=== PATIENT | female | born 1990 | race Caucasian/White ===

== ENCOUNTER 2016-10-31 19:27 | Observation (INO) | payer MEDICAID ==
[~2016-10-31] VITALS: Ht 157.5 cm; Wt 62.0 kg
[2016-10-31 19:58] VITALS: BP 96/52; PULSE 88; RESP 22; TEMP 96.4; O2SAT 96
[2016-10-31] MEDS ORDERED: SODIUM CHLOR 0.9% 1000 ML INJ 1,000 ML IV SCH (20:06)
[2016-10-31] MEDS ORDERED: ONDANSETRON HCL 4 MG/2 ML VIAL IVP ONE (20:15)
[2016-10-31] MEDS ORDERED: SODIUM CHLORIDE 0.9% FLUSH 10 ML FLUSH IV FLUSH PRN (20:15)
--- NOTE | 2016-10-31 20:26 | PD ---
HPI Chief Complaint: Abdominal Pain Time Seen by Provider: 20:15 Travel History International Travel<30 days: No Contact w/Intl Traveler<30days: No Traveled to known affect area: No History of Present Illness HPI Patient is a 26-year-old female presenting to emergency department via EMS for evaluation of abdominal pain. Patient's pain started abruptly approximately one hour prior to arrival. Per her sister's report patient went to the bathroom because she became nauseated, she vomited and became diaphoretic. She had a second episode of vomiting in the bathroom. Her sister stated that she was going to bring her to the emergency department but patient was able to get get up so she called 911. Her last normal menstrual cycle was over a month ago , she states that she spotted last week that was not normal for her. She has no other significant past medical history or complaints. PFSH Past Medical History Medical History: Denies Significant Hx ?: Unknown Social History Alcohol Use: Yes Tobacco Use: Yes Substance Use: No Allergies-Medications (Allergen,Severity, Reaction): Coded Allergies: No Known Allergies (Unverified , 10/31/16) Reported Meds & Prescriptions Reported Meds & Active Scripts Active Ibuprofen 600 Mg Tab 600 Mg PO Q6H PRN Oxycodone-Acetaminophen 10-325 mg Tab 1 Tab PO UNSCH X1 PRN Review of Systems Except as stated in HPI: all other systems reviewed are Neg General / Constitutional: No: Fever, Chills Cardiovascular: Positive: Diaphoresis Gastrointestinal: Positive: Nausea, Vomiting, Abdominal Pain Genitourinary: No: Dysuria Physical Exam Narrative GENERAL: Well-developed, well-nourished, alert female. SKIN: Focused skin assessment warm/dry. HEAD: Atraumatic. Normocephalic. EYES: Pupils equal and round. No scleral icterus. No injection or drainage. ENT: No nasal bleeding or discharge. Mucous membranes pink and moist. NECK: Trachea midline. No JVD. CARDIOVASCULAR: Regular rate and rhythm. No murmur appreciated. RESPIRATORY: No accessory muscle use. Clear to auscultation. Breath sounds equal bilaterally. GASTROINTESTINAL: Abdomen soft, tender to palpation in bilateral lower quadrants., nondistended. Hepatic and splenic margins not palpable. Active bowel sounds, positive guarding. MUSCULOSKELETAL: No obvious deformities. No clubbing. No cyanosis. No edema. NEUROLOGICAL: Awake and alert. No obvious cranial nerve deficits. Motor grossly within normal limits. Normal speech. PSYCHIATRIC: Appropriate mood and affect; insight and judgment normal. Data Data Last Documented VS Vital Signs Date Time Temp Pulse Resp B/P Pulse Ox O2 Delivery O2 Flow Rate FiO2 10/31/16 23:50 78 20 104/58 100 Room Air 10/31/16 19:58 96.4 Orders Basic Metabolic Panel (Bmp) (10/31/16 20:06) Complete Blood Count With Diff (10/31/16 20:06) Lipase (10/31/16 20:06) Urinalysis - C+S If Indicated (10/31/16 20:06) Iv Access Insert/Monitor (10/31/16 20:06) Ecg Monitoring (10/31/16 20:06) Oximetry (10/31/16 20:06) NPO (10/31/16 20:06) Ondansetron Inj (Zofran Inj) (10/31/16 20:15) Sodium Chlor 0.9% 1000 Ml Inj (Ns 1000 M (10/31/16 20:06) Sodium Chloride 0.9% Flush (Ns Flush) (10/31/16 20:15) Ed Urine Pregnancytest Poc (10/31/16 20:06) Sodium Chlor 0.9% 1000 Ml Inj (Ns 1000 M (10/31/16 21:15) Protein Corrected Calcium(Pcc) (10/31/16 20:37) Lactic Acid (10/31/16 21:23) Beta Hcg (Quant/Titer) (10/31/16 20:37) Type And Screen (10/31/16 21:40) Us Pelvis (Ques Pr/Ect)W Trans (10/31/16 ) Complete Blood Count With Diff (10/31/16 23:48) Bupivacaine-Epi Pf 0.25% Inj (Marcaine-E (11/01/16 00:27) Bupivacaine Pf 0.25% Inj (Marcaine Pf 0. (11/01/16 00:28) Labs Laboratory Tests Test 10/31/16 10/31/16 10/31/16 10/31/16 20:37 21:10 21:14 21:57 White Blood Count 15.8 TH/MM3 Red Blood Count 2.76 MIL/MM3 Hemoglobin 8.6 GM/DL Hematocrit 25.1 % Mean Corpuscular Volume 90.8 FL Mean Corpuscular Hemoglobin 31.1 PG Mean Corpuscular Hemoglobin 34.2 % Concent Red Cell Distribution Width 12.0 % Platelet Count 293 TH/MM3 Mean Platelet Volume 7.3 FL Neutrophils (%) (Auto) 86.8 % Lymphocytes (%) (Auto) 8.7 % Monocytes (%) (Auto) 4.2 % Eosinophils (%) (Auto) 0.1 % Basophils (%) (Auto) 0.2 % Neutrophils # (Auto) 13.7 TH/MM3 Lymphocytes # (Auto) 1.4 TH/MM3 Monocytes # (Auto) 0.7 TH/MM3 Eosinophils # (Auto) 0.0 TH/MM3 Basophils # (Auto) 0.0 TH/MM3 CBC Comment DIFF FINAL Differential Comment Sodium Level 138 MEQ/L Potassium Level 3.6 MEQ/L Chloride Level 107 MEQ/L Carbon Dioxide Level 17.8 MEQ/L Anion Gap 13 MEQ/L Blood Urea Nitrogen 13 MG/DL Creatinine 0.68 MG/DL Estimat Glomerular Filtration 106 ML/MIN Rate Random Glucose 194 MG/DL Calcium Level 7.3 MG/DL Protein Corrected Calcium 8.3 MG/DL Total Protein 5.3 GM/DL Lipase 47 U/L Human Chorionic Gonadotropin, [address] MIU/ML Quant Urine Color YELLOW Urine Turbidity HAZY Urine pH 6.5 Urine Specific [place] 1.025 Urine Protein 30 mg/dL Urine Glucose (UA) 150 mg/dL Urine Ketones 150 mg/dL Urine Occult Blood NEG Urine Nitrite NEG Urine Bilirubin NEG Urine Urobilinogen 2.0 MG/DL Urine Leukocyte Esterase NEG Urine WBC 4 /hpf Urine Squamous Epithelial 2 /hpf Cells Urine Hyaline Casts 4 /lpf Urine Mucus MOD /lpf Microscopic Urinalysis Comment CULT NOT INDICATED Lactic Acid Level 3.0 mmol/L Blood Type A POSITIVE Antibody Screen NEGATIVE Blood Bank Comment Test 10/31/16 23:55 White Blood Count 13.4 TH/MM3 Red Blood Count 2.15 MIL/MM3 Hemoglobin 6.6 GM/DL Hematocrit 19.8 % Mean Corpuscular Volume 91.9 FL Mean Corpuscular Hemoglobin 30.6 PG Mean Corpuscular Hemoglobin 33.3 % Concent Red Cell Distribution Width 12.1 % Platelet Count 263 TH/MM3 Mean Platelet Volume 7.4 FL Neutrophils (%) (Auto) 92.2 % Lymphocytes (%) (Auto) 5.1 % Monocytes (%) (Auto) 2.5 % Eosinophils (%) (Auto) 0.0 % Basophils (%) (Auto) 0.2 % Neutrophils # (Auto) 12.4 TH/MM3 Lymphocytes # (Auto) 0.7 TH/MM3 Monocytes # (Auto) 0.3 TH/MM3 Eosinophils # (Auto) 0.0 TH/MM3 Basophils # (Auto) 0.0 TH/MM3 CBC Comment DIFF FINAL Differential Comment MDM Medical Decision Making Medical Screen Exam Complete: Yes Emergency Medical Condition: Yes Interpretation(s) Vital Signs Date Time Temp Pulse Resp B/P Pulse Ox O2 Delivery O2 Flow Rate FiO2 10/31/16 19:58 96.4 88 22 96/52 96 Differential Diagnosis enteritis versus UTI versus ectopic versus versus other Narrative Course Patient is a 26-year-old female presenting to the emergency department via EMS for evaluation of abdominal pain, nausea or vomiting. Abdominal pain started abruptly approximately 1 hour prior to arrival, patient had been having several episodes of vomiting at home, and then became unable to get up so her sister, 911. Patient is slightly hypotensive, she has received 2 L of IV fluids, A third liter is hanging. Labs and imaging ordered and pending. The, patient has not vomited since she has been in the emergency department. Care of patient transferred to my attending physician at the end of my shift, he will determine patient's disposition. Scripts Ibuprofen 600 Mg [id number] Mg PO Q6H PRN (Pain/Inflammation) #40 TAB Ref 0 Prov:Beck Ritchie MD 11/01/16 Oxycodone-Acetaminophen 10-325 mg Tab1 Tab PO UNSCH X1 PRN (PAIN SCALE 6 TO 10) #30 TAB Prov:Beck Ritchie MD 11/01/16 Priscilla Pantoja Oct 31, 2016 20:26
[2016-10-31 20:57] VITALS: PULSE 73; O2SAT 100
[2016-10-31 20:57] LABS: AUTOMATED NEUTROPHIL # 13.7 TH/MM3 (1.8-7.7); BASOPHIL % 0.2 % (0.0-2.0); EOSINOPHIL % 0.1 % (0.0-4.0); HEMATOCRIT 25.1 % (35.0-46.0); HEMO FLAGS DIFF FINAL; LYMPH % 8.7 % (9.0-44.0); LYMPHOCYTE # 1.4 TH/MM3 (1.0-4.8); MEAN CELL VOLUME 90.8 FL (80.0-100.0); MEAN CORPUSCULAR HEMOGLOBIN 31.1 PG (27.0-34.0); MEAN CORPUSCULAR HGB CONC 34.2 % (32.0-36.0); MONO % 4.2 % (0.0-8.0); NEUT % 86.8 % (16.0-70.0); PLATELET COUNT 293 TH/MM3 (150-450); RED BLOOD COUNT 2.76 MIL/MM3 (4.00-5.30); WHITE BLOOD COUNT 15.8 TH/MM3 (4.0-11.0)
[2016-10-31 21:11] LABS: BICARBONATE 17.8 MEQ/L (21.0-32.0)
[2016-10-31 21:14] LABS: POTASSIUM 3.6 MEQ/L (3.5-5.1)
[2016-10-31] MEDS ORDERED: SODIUM CHLOR 0.9% 1000 ML INJ 1,000 ML IV ONE (21:15)
[2016-10-31 21:17] VITALS: BP 127/60; PULSE 75; O2SAT 100
[2016-10-31 21:29] LABS: CALCIUM-PROTEIN CORRECTED 8.3 MG/DL (8.5-10.1)
[2016-10-31 21:43] LABS: BLOOD, URINE NEG (NEG); COMMENT (UR) CULT NOT INDICATED; CULTURE IF INDICATED CULT NOT INDICATED; GLUCOSE,URINE 150 mg/dL (NEG); HYALINE CAST, URINE 4 /lpf (RARE); KETONE, URINE 150 mg/dL (NEG); MUCUS URINE MOD /lpf (OCC); NITRITE,URINE NEG (NEG); PH, URINE 6.5 (5.0-8.5); SQUAMOUS EPITHELIAL CELL URINE 2 /hpf (0-5); URINE COLOR YELLOW (YELLW/STRAW)
--- NOTE | 2016-10-31 22:54 | HHI.HP ---
HPI Chief Complaint Sudden onset of abdominal pain Date Seen: Oct 31, 2016 Time Seen: 22:48 Travel History International Travel<30 Days: No Contact w/Intl Traveler<30Days: No Known Affected Area: No History of Present Illness HPI 26-year-old female at unknown gestational age comes into the ED complaining of sudden onset of severe abdominal pain associated with diaphoresis and lightheadedness. She was not aware of her and had a UCG in the ED this evening that was positive. Patient had a low blood pressure on presentation and had placement of an IV with fluids. She has not been on any control and believes that her last partial cycle was approximately 4-1 /2 weeks ago but is not certain. She is visiting here from [place] where she resides. Para: 0 : 1 History Past Medical History Medical History: Denies Significant Hx Past Surgical History Surgical History: No Previous Surgery Family History Family History: Negative Social History Alcohol Use: Yes Tobacco Use: Yes (half a pack a day) Substance Abuse: Yes (marijuana use) Allergies-Medications (Allergen,Severity, Reaction): Coded Allergies: No Known Allergies (Unverified , 10/31/16) Home Meds No Active Prescriptions or Reported Meds Review of Systems Except as stated in HPI: all other systems reviewed are Neg Physical Exam Vital Signs Date Time Temp Pulse Resp B/P Pulse Ox O2 Delivery O2 Flow Rate FiO2 10/31/16 21:17 75 127/60 100 Room Air 10/31/16 20:57 73 100 Room Air 10/31/16 20:17 Room Air 10/31/16 19:58 96.4 88 22 96/52 96 Narrative GENERAL: Well-nourished, well-developed patient. SKIN: Warm and dry. HEAD: Normocephalic and atraumatic. EYES: No scleral icterus. No injection or drainage. ENT: No nasal drainage noted. Mucous membranes pink. Airway patent. NECK: Supple, trachea midline. No JVD. CARDIOVASCULAR: Regular rate and rhythm without murmurs, gallops, or rubs. RESPIRATORY: Breath sounds equal bilaterally. No accessory muscle use. BREASTS: Bilateral exam showed no masses , no retractions, no nipple discharge. ABDOMEN/GI: Abdomen with guarding and rebound. Moderate distention is noted. Decreased bowel sounds GENITOURINARY: External Genitalia: intact and normal in appearance great difficulty is noted doing a pelvic examination due to severe abdominal pain Bedside ultrasound was performed and there is no intrauterine that I can see. Examination is limited due to a nondistended bladder and lack of a vaginal ultrasound. EXTREMITIES: No cyanosis or edema. BACK: Nontender without obvious deformity. No CVA tenderness. NEUROLOGICAL: Awake and alert. Motor and sensory grossly within normal limits. Five out of 5 muscle strength in all muscle groups. Normal speech. Data Data Orders Basic Metabolic Panel (Bmp) (10/31/16 20:06) Complete Blood Count With Diff (10/31/16 20:06) Lipase (10/31/16 20:06) Urinalysis - C+S If Indicated (10/31/16 20:06) Iv Access Insert/Monitor (10/31/16 20:06) Ecg Monitoring (10/31/16 20:06) Oximetry (10/31/16 20:06) NPO (10/31/16 20:06) Ondansetron Inj (Zofran Inj) (10/31/16 20:15) Sodium Chlor 0.9% 1000 Ml Inj (Ns 1000 M (10/31/16 20:06) Sodium Chloride 0.9% Flush (Ns Flush) (10/31/16 20:15) Ed Urine Pregnancytest Poc (10/31/16 20:06) Sodium Chlor 0.9% 1000 Ml Inj (Ns 1000 M (10/31/16 21:15) Protein Corrected Calcium(Pcc) (10/31/16 20:37) Us Pelvis (Ques Preg/Ectopic) (10/31/16 ) Lactic Acid (10/31/16 21:23) Beta Hcg (Quant/Titer) (10/31/16 20:37) Type And Screen (10/31/16 21:40) Labs Laboratory Tests Test 10/31/16 10/31/16 10/31/16 10/31/16 20:37 21:10 21:14 21:57 White Blood Count 15.8 TH/MM3 Red Blood Count 2.76 MIL/MM3 Hemoglobin 8.6 GM/DL Hematocrit 25.1 % Mean Corpuscular Volume 90.8 FL Mean Corpuscular Hemoglobin 31.1 PG Mean Corpuscular Hemoglobin 34.2 % Concent Red Cell Distribution Width 12.0 % Platelet Count 293 TH/MM3 Mean Platelet Volume 7.3 FL Neutrophils (%) (Auto) 86.8 % Lymphocytes (%) (Auto) 8.7 % Monocytes (%) (Auto) 4.2 % Eosinophils (%) (Auto) 0.1 % Basophils (%) (Auto) 0.2 % Neutrophils # (Auto) 13.7 TH/MM3 Lymphocytes # (Auto) 1.4 TH/MM3 Monocytes # (Auto) 0.7 TH/MM3 Eosinophils # (Auto) 0.0 TH/MM3 Basophils # (Auto) 0.0 TH/MM3 CBC Comment DIFF FINAL Differential Comment Sodium Level 138 MEQ/L Potassium Level 3.6 MEQ/L Chloride Level 107 MEQ/L Carbon Dioxide Level 17.8 MEQ/L Anion Gap 13 MEQ/L Blood Urea Nitrogen 13 MG/DL Creatinine 0.68 MG/DL Estimat Glomerular Filtration 106 ML/MIN Rate Random Glucose 194 MG/DL Calcium Level 7.3 MG/DL Protein Corrected Calcium 8.3 MG/DL Total Protein 5.3 GM/DL Lipase 47 U/L Human Chorionic Gonadotropin, [address] MIU/ML Quant Urine Color YELLOW Urine Turbidity HAZY Urine pH 6.5 Urine Specific [place] 1.025 Urine Protein 30 mg/dL Urine Glucose (UA) 150 mg/dL Urine Ketones 150 mg/dL Urine Occult Blood NEG Urine Nitrite NEG Urine Bilirubin NEG Urine Urobilinogen 2.0 MG/DL Urine Leukocyte Esterase NEG Urine WBC 4 /hpf Urine Squamous Epithelial 2 /hpf Cells Urine Hyaline Casts 4 /lpf Urine Mucus MOD /lpf Microscopic Urinalysis Comment CULT NOT INDICATED Lactic Acid Level 3.0 mmol/L Blood Type A POSITIVE Antibody Screen NEGATIVE Blood Bank Comment Laboratory Tests Test 10/31/16 10/31/16 10/31/16 10/31/16 20:37 21:10 21:14 21:57 White Blood Count 15.8 Red Blood Count 2.76 Hemoglobin 8.6 Hematocrit 25.1 Mean Corpuscular Volume 90.8 Mean Corpuscular Hemoglobin 31.1 Mean Corpuscular Hemoglobin 34.2 Concent Red Cell Distribution Width 12.0 Platelet Count 293 Mean Platelet Volume 7.3 Neutrophils (%) (Auto) 86.8 Lymphocytes (%) (Auto) 8.7 Monocytes (%) (Auto) 4.2 Eosinophils (%) (Auto) 0.1 Basophils (%) (Auto) 0.2 Neutrophils # (Auto) 13.7 Lymphocytes # (Auto) 1.4 Monocytes # (Auto) 0.7 Eosinophils # (Auto) 0.0 Basophils # (Auto) 0.0 CBC Comment DIFF FINAL Differential Comment Sodium Level 138 Potassium Level 3.6 Chloride Level 107 Carbon Dioxide Level 17.8 Anion Gap 13 Blood Urea Nitrogen 13 Creatinine 0.68 Estimat Glomerular Filtration 106 Rate Random Glucose 194 Calcium Level 7.3 Protein Corrected Calcium 8.3 Total Protein 5.3 Lipase 47 Human Chorionic Gonadotropin, [id number] Quant Urine Color YELLOW Urine Turbidity HAZY Urine pH 6.5 Urine Specific [place] 1.025 Urine Protein 30 Urine Glucose (UA) 150 Urine Ketones 150 Urine Occult Blood NEG Urine Nitrite NEG Urine Bilirubin NEG Urine Urobilinogen 2.0 Urine Leukocyte Esterase NEG Urine WBC 4 Urine Squamous Epithelial 2 Cells Urine Hyaline Casts 4 Urine Mucus MOD Microscopic Urinalysis Comment CULT NOT INDICATED Lactic Acid Level 3.0 Blood Type A POSITIVE Antibody Screen NEGATIVE Blood Bank Comment Assessment/Plan Assessment and Plan 26-year-old female with a beta hCG of 26,000, diet aide is here at bedside for ultrasound Unconcerned about a hemoperitoneum with a ruptured ectopic and I discussed the possibilities of a laparoscopic surgery versus a laparotomy if needed Dr. Beck Ritchie is cylinder honer Asia Galeano MD Oct 31, 2016 22:54
[2016-10-31 23:50] VITALS: BP 104/58; PULSE 78; RESP 20; O2SAT 100
--- NOTE | 2016-11-01 00:05 | HHI.PR ---
Subjective Remarks pt c/o worsening abdominal and epigastric pain and lightheadedness Objective Vital Signs Date Time Temp Pulse Resp B/P Pulse Ox O2 Delivery O2 Flow Rate FiO2 10/31/16 23:50 78 20 104/58 100 Room Air 10/31/16 21:17 75 127/60 100 Room Air 10/31/16 20:57 73 100 Room Air 10/31/16 20:17 Room Air 10/31/16 19:58 96.4 88 22 96/52 96 I/O 10/30/16 10/30/16 10/30/16 10/31/16 10/31/16 10/31/16 07:00 15:00 23:00 07:00 15:00 23:00 Intake Total 3000 ml Balance 3000 ml Intake IV Total 3000 ml # Bowel Movements 1 Result Diagram: 10/31/16203610/31/162036 Other Results cv-rrr pulm- cta abd-diffusely tender, with rebound and guarding Assessment and Plan Problem List: (1) Ectopic without intrauterine Status: Acute Plan: reviewed need for surgery and consent. all questions answered. official u/s report still pending (2) Abdominal pain affecting Status: Acute Plan: reviewed need for surgery (3) Anemia Status: Acute Plan: will repeat cbc now as last cbc was from nearly 4 hours ago reviewed pt may need blood transfusion Problem Qualifiers (1) Ectopic without intrauterine : Qualified Code: O00.10 - Tubal without intrauterine Beck Ritchie MD Nov 01, 2016 00:05
[2016-11-01 00:08] LABS: AUTOMATED NEUTROPHIL # 12.4 TH/MM3 (1.8-7.7); BASOPHIL % 0.2 % (0.0-2.0); LYMPH % 5.1 % (9.0-44.0); LYMPHOCYTE # 0.7 TH/MM3 (1.0-4.8); MEAN CELL VOLUME 91.9 FL (80.0-100.0); MEAN CORPUSCULAR HEMOGLOBIN 30.6 PG (27.0-34.0); MEAN CORPUSCULAR HGB CONC 33.3 % (32.0-36.0); MONO % 2.5 % (0.0-8.0); NEUT % 92.2 % (16.0-70.0); PLATELET COUNT 263 TH/MM3 (150-450); RED BLOOD COUNT 2.15 MIL/MM3 (4.00-5.30); RED CELL DISTRIBUTION WIDTH 12.1 % (11.6-17.2); WHITE BLOOD COUNT 13.4 TH/MM3 (4.0-11.0)
--- NOTE | 2016-11-01 00:11 | RADRPT ---
EXAM DATE/TIME: 10/31/2016 22:39 [facility] COMPARISON: No previous studies available for comparison. INDICATIONS : Pelvic pain. LAB(S): Beta-hC MEDICAL HISTORY : . Asthma. SURGICAL HISTORY : Tonsillectomy. Knuckle surgery. ENCOUNTER: Initial ACUITY: 1 day PAIN SCORE: 9/10 LOCATION: Bilateral pelvis MEASUREMENTS: UTERUS: 9.3 x 6.2 x 4.2 cm ENDOMETRIAL STRIPE: 13 mm RIGHT OVARY: 4.6 x 3.4 x 2.1 cm LEFT OVARY: 2.8 x 3.5 x 2.3 cm FREE FLUID: Yes Throughout pelvis. CROWN RUMP LENGTH: 0.3 cm = 6 WKS 0 DAYS FHR: Non visualized. BPM FINDINGS: UTERUS: There is an intrauterine gestation as there. A well-formed gestational sac is noted. There is a yolk sac in pole. Lamoni-rump length measures 0.33 cm which equals 6 weeks zero days gestational age. No discernible heart rate is seen. RIGHT OVARY: Complex fluid is seen within the right adnexa. The volume is less than on the other side. The right o vary is normal. LEFT OVARY: There is heterogeneous mixed echogenicity but predominantly hyperechoic material within the left adne xa. Systolic be outside the uterus. This partially obscures the left ovary. A portion of the left ova ry is visualized is unremarkable. There is an elliptical complex fluid collection within the left adn exa is somewhat tubular in nature measuring 5.4 x 2.2 cm. MISCELLANEOUS: Complex fluid within the adnexa bilaterally but more pronounced on the left. CONCLUSION: 1. Solitary intrauterine gestation. Age by crown-rump length is 6 weeks zero days. No discernible fet al heart rate is appreciated. This is concerning for demise. 2. Complex fluid within the adnexa bilaterally but more pronounced on the left worrisome for hemoperi toneum. This is suggestive of a ruptured hemorrhagic cyst. Jose Andrea Jr., MD on October 31, 2016 at 23:58 Board Certified Radiologist. This report was verified electronically.
[2016-11-01 00:20] LABS: HEMO FLAGS DIFF FINAL
[2016-11-01 00:22] LABS: HEMATOCRIT 19.8 % (35.0-46.0)
[2016-11-01] MEDS ORDERED: BUPIVACAINE/EPINEPHRINE 0.25% PF 30 ML VIAL ONE (00:27)
[2016-11-01] MEDS ORDERED: BUPIVACAINE HCL PF 0.25% 30 ML VIAL ONE (00:28)
--- NOTE | 2016-11-01 00:28 | HHI.PR ---
Addendum to Inpatient Note Addendum Reason: Additional Documentation Additional Information u/s report reviewed with pt free fluid noted throughout pelvis, IUP c/w 6 wks gest without cardiac activity noted. pts hb has also dropped to 6.6. reviewed that pt could have heterotopic and also that the that is in the uterus will likely be nonviable. pt desires to proceed only with laparoscopic surgery at this time, pt understands that she will likely need a blood transfusion and may require additional surgery in the future. all questions answered. type and cross ordered. Beck Ritchie MD Nov 01, 2016 00:28
[2016-11-01] MEDS ORDERED: MORPHINE SULFATE 4 MG/ML INJ IV PUSH ONE (00:30)
[2016-11-01] MEDS ORDERED: MORPHINE SULFATE 8 MG/ML INJ ONE (00:33)
[2016-11-01] MEDS ORDERED: ceFAZolin 2 GM PREMIX 50 ML ONE (00:35)
--- NOTE | 2016-11-01 00:39 | PD ---
Data Data Last Documented VS Vital Signs Date Time Temp Pulse Resp B/P Pulse Ox O2 Delivery O2 Flow Rate FiO2 10/31/16 23:50 78 20 104/58 100 Room Air 10/31/16 19:58 96.4 Orders Basic Metabolic Panel (Bmp) (10/31/16 20:06) Complete Blood Count With Diff (10/31/16 20:06) Lipase (10/31/16 20:06) Urinalysis - C+S If Indicated (10/31/16 20:06) Iv Access Insert/Monitor (10/31/16 20:06) Ecg Monitoring (10/31/16 20:06) Oximetry (10/31/16 20:06) NPO (10/31/16 20:06) Ondansetron Inj (Zofran Inj) (10/31/16 20:15) Sodium Chlor 0.9% 1000 Ml Inj (Ns 1000 M (10/31/16 20:06) Sodium Chloride 0.9% Flush (Ns Flush) (10/31/16 20:15) Ed Urine Pregnancytest Poc (10/31/16 20:06) Sodium Chlor 0.9% 1000 Ml Inj (Ns 1000 M (10/31/16 21:15) Protein Corrected Calcium(Pcc) (10/31/16 20:37) Lactic Acid (10/31/16 21:23) Beta Hcg (Quant/Titer) (10/31/16 20:37) Type And Screen (10/31/16 21:40) Us Pelvis (Ques Pr/Ect)W Trans (10/31/16 ) Complete Blood Count With Diff (10/31/16 23:48) Bupivacaine-Epi Pf 0.25% Inj (Marcaine-E (11/01/16 00:27) Bupivacaine Pf 0.25% Inj (Marcaine Pf 0. (11/01/16 00:28) Morphine Inj (Morphine Inj) (11/01/16 00:30) Labs Laboratory Tests Test 10/31/16 10/31/16 10/31/16 10/31/16 20:37 21:10 21:14 21:57 White Blood Count 15.8 TH/MM3 Red Blood Count 2.76 MIL/MM3 Hemoglobin 8.6 GM/DL Hematocrit 25.1 % Mean Corpuscular Volume 90.8 FL Mean Corpuscular Hemoglobin 31.1 PG Mean Corpuscular Hemoglobin 34.2 % Concent Red Cell Distribution Width 12.0 % Platelet Count 293 TH/MM3 Mean Platelet Volume 7.3 FL Neutrophils (%) (Auto) 86.8 % Lymphocytes (%) (Auto) 8.7 % Monocytes (%) (Auto) 4.2 % Eosinophils (%) (Auto) 0.1 % Basophils (%) (Auto) 0.2 % Neutrophils # (Auto) 13.7 TH/MM3 Lymphocytes # (Auto) 1.4 TH/MM3 Monocytes # (Auto) 0.7 TH/MM3 Eosinophils # (Auto) 0.0 TH/MM3 Basophils # (Auto) 0.0 TH/MM3 CBC Comment DIFF FINAL Differential Comment Sodium Level 138 MEQ/L Potassium Level 3.6 MEQ/L Chloride Level 107 MEQ/L Carbon Dioxide Level 17.8 MEQ/L Anion Gap 13 MEQ/L Blood Urea Nitrogen 13 MG/DL Creatinine 0.68 MG/DL Estimat Glomerular Filtration 106 ML/MIN Rate Random Glucose 194 MG/DL Calcium Level 7.3 MG/DL Protein Corrected Calcium 8.3 MG/DL Total Protein 5.3 GM/DL Lipase 47 U/L Human Chorionic Gonadotropin, 40688 MIU/ML Quant Urine Color YELLOW Urine Turbidity HAZY Urine pH 6.5 Urine Specific [place] 1.025 Urine Protein 30 mg/dL Urine Glucose (UA) 150 mg/dL Urine Ketones 150 mg/dL Urine Occult Blood NEG Urine Nitrite NEG Urine Bilirubin NEG Urine Urobilinogen 2.0 MG/DL Urine Leukocyte Esterase NEG Urine WBC 4 /hpf Urine Squamous Epithelial 2 /hpf Cells Urine Hyaline Casts 4 /lpf Urine Mucus MOD /lpf Microscopic Urinalysis Comment CULT NOT INDICATED Lactic Acid Level 3.0 mmol/L Blood Type A POSITIVE Antibody Screen NEGATIVE Blood Bank Comment Test 10/31/16 23:55 White Blood Count 13.4 TH/MM3 Red Blood Count 2.15 MIL/MM3 Hemoglobin 6.6 GM/DL Hematocrit 19.8 % Mean Corpuscular Volume 91.9 FL Mean Corpuscular Hemoglobin 30.6 PG Mean Corpuscular Hemoglobin 33.3 % Concent Red Cell Distribution Width 12.1 % Platelet Count 263 TH/MM3 Mean Platelet Volume 7.4 FL Neutrophils (%) (Auto) 92.2 % Lymphocytes (%) (Auto) 5.1 % Monocytes (%) (Auto) 2.5 % Eosinophils (%) (Auto) 0.0 % Basophils (%) (Auto) 0.2 % Neutrophils # (Auto) 12.4 TH/MM3 Lymphocytes # (Auto) 0.7 TH/MM3 Monocytes # (Auto) 0.3 TH/MM3 Eosinophils # (Auto) 0.0 TH/MM3 Basophils # (Auto) 0.0 TH/MM3 CBC Comment DIFF FINAL Differential Comment [facility] Supervised Visit with VANESSA: Yes Narrative Course This patient was started by PAM Wells but then her shift ended and she checked the patient out to me to disposition. It turns out this patient is critically ill. She arrived hypotensive with acute onset of pelvic pain. She did not know she was but has a beta titer of 26,000. I gave her an additional liter normal saline IV bolus and now she's had a total of 3 L Initial blood pressure was 96 systolic it is come up to 120 systolic after 3 L. CBC shows leukocytosis with a hemoglobin of 8.4 I ordered a type and screen Placed a second IV I did a bedside transabdominal ultrasound. I cannot definitively identify an intrauterine fetus but there does seem to be a lot of intraperitoneal fluid which I suspect is blood. I spoke with OB hospitalist Dr. Corea who came down and evaluated the patient. I have the fiber technologist come down stat and do an emergent one and then I spoke with radiologist Dr. Andrea about it. He does see a 6 week intrauterine fetus but no heart rate. There is a lot of fluid around the left ovary and left adnexal region suspicious for hemorrhage It seems like this patient has ruptured hemorrhagic ovarian cyst. In Any event she has some degree of hemorrhagic shock with dropping hemoglobin now at 6.6. The SOFTWARE TOOLS DEVELOPER surgeon Dr. Ritchie is here at bedside and she is planning to admit the patient and take her to the operating room. She is ordered 2 units of packed red cells. I asked if she wanted them emergent release but she doesn't think so. She is requesting regular floor rather than ICU and thinks the patient will be stable after surgery. Patient is very complicated and has required a lot of time, bedside and otherwise. Aggregate critical care time was 80 minutes. Time to perform other separately billable procedures was not included in the critical care time. My time did not include minutes spent treating any other patients simultaneously or on activities that did not directly contribute to the patient's treatment. The services I provided to this patient were to treat and/or prevent clinically significant deterioration that could result in: Hemorrhagic shock, cardiopulmonary arrest, I provided critical care services requiring my management, as noted below: Chart data review, documentation time, medication orders and management, vital sign assessments/reviewing monitor data, ordering and reviewing lab tests, ordering and interpreting/reviewing x-rays and diagnostic studies, care of the patient and discussion of the patient with the admitting physicians. Diagnosis Primary Impression: Shock Additional Impressions: Hemorrhagic cyst of ovary Abdominal pain affecting Admitting Information Admitting Physician Requests: Admit Scripts No Active Prescriptions or Reported Meds Eamon Kendall MD Nov 01, 2016 00:39
[2016-11-01] MEDS ORDERED: LACTATED RINGER'S 1000 ML INJ 2,000 ML IV ONE (01:00)
[2016-11-01] MEDS ORDERED: ONDANSETRON HCL 4 MG/2 ML VIAL IV PUSH ONE (01:00)
[2016-11-01] MEDS ORDERED: PROPOFOL 200 MG/20 ML AMP IV ONE (01:00)
[2016-11-01] MEDS ORDERED: PHENYLEPH/NS 1000 MCG/10 ML SYR IV ONE (01:00)
[2016-11-01] MEDS ORDERED: SUGAMMADEX SODIUM 200 MG/2 ML VIAL IV PUSH ONE ×2 (01:46)
[2016-11-01] MEDS ORDERED: ACETAMINOPHEN 1000 MG/100 ML VIAL IV ONE (01:46)
[2016-11-01] MEDS ORDERED: oxyCODONE/ACETAMINOPHEN 10 MG/325 MG TAB PO PRN (02:45)
[2016-11-01] MEDS ORDERED: ONDANSETRON HCL 4 MG/2 ML VIAL IV PUSH PRN (02:45)
[2016-11-01] MEDS ORDERED: oxyCODONE/ACETAMINOPHEN 5 MG/325 MG TAB PO PRN ×2 (02:45→06:15)
[2016-11-01] MEDS ORDERED: fentaNYL CITRATE 250 MCG/5 ML AMP ONE (03:06)
[2016-11-01] MEDS ORDERED: MIDAZOLAM HCL 2 MG/2 ML VIAL ONE (03:06)
[2016-11-01] MEDS ORDERED: MORPHINE SULFATE 4 MG/ML INJ ONE (03:07)
[2016-11-01 03:09] LABS: AUTOMATED NEUTROPHIL # 13.7 TH/MM3 (1.8-7.7); BASOPHIL % 0.1 % (0.0-2.0); HEMATOCRIT 30.4 % (35.0-46.0); HEMO FLAGS DIFF FINAL; LYMPH % 4.1 % (9.0-44.0); LYMPHOCYTE # 0.6 TH/MM3 (1.0-4.8); MEAN CELL VOLUME 87.8 FL (80.0-100.0); MEAN CORPUSCULAR HEMOGLOBIN 30.2 PG (27.0-34.0); MEAN CORPUSCULAR HGB CONC 34.4 % (32.0-36.0); MONO % 4.4 % (0.0-8.0); NEUT % 91.4 % (16.0-70.0); PLATELET COUNT 193 TH/MM3 (150-450); RED BLOOD COUNT 3.47 MIL/MM3 (4.00-5.30); RED CELL DISTRIBUTION WIDTH 14.3 % (11.6-17.2)
[2016-11-01] MEDS ORDERED: *morphine SULFATE 8 MG/ML PERIprocedure ONLY ONE (03:11)
[2016-11-01] MEDS: KETOROLAC TROMETHAMINE 30 MG/ML (IVP) VIAL IV PUSH SCH ×2 (03:30→08:42)
[2016-11-01] MEDS ORDERED: DIMETHICONE/OXYBENZONE/PADMIATE LIP BALM 4.25 GM TOPICAL ONE (03:56)
[2016-11-01 04:15] VITALS: BP 135/81; PULSE 88; RESP 17; TEMP 97.3; O2SAT 98
[2016-11-01] MEDS ORDERED: OXYC1TAB36 PO (06:02)
[2016-11-01] MEDS ORDERED: IBUP-232 PO (06:02)
--- NOTE | 2016-11-01 06:07 | HHI.PR ---
Subjective Remarks pt feeling better s/p surgery. denies dizziness Objective Vital Signs Date Time Temp Pulse Resp B/P Pulse Ox O2 Delivery O2 Flow Rate FiO2 11/01/16 04:46 20 11/01/16 04:15 97.3 88 17 135/81 98 11/01/16 03:45 98.6 92 14 135/83 98 11/01/16 03:30 84 14 120/74 98 Nasal Cannula 2 11/01/16 03:15 86 16 121/68 99 Nasal Cannula 2 11/01/16 03:00 102 16 130/75 100 Nasal Cannula 3 11/01/16 02:48 98.7 92 15 126/74 98 Nasal Cannula 3 10/31/16 23:50 78 20 104/58 100 Room Air 10/31/16 21:17 75 127/60 100 Room Air 10/31/16 20:57 73 100 Room Air 10/31/16 20:17 Room Air 10/31/16 19:58 96.4 88 22 96/52 96 I/O 10/31/16 10/31/16 10/31/16 11/01/16 11/01/16 11/01/16 07:00 15:00 23:00 07:00 15:00 23:00 Intake Total 3000 ml 3615 ml Output Total 2950 ml Balance 3000 ml 665 ml Intake Oral 15 ml IV Total 3000 ml 300 ml Packed Cells 500 ml Other 2800 ml Output Urine Total 750 ml Estimated Blood Loss 1700 ml Other 500 ml # Bowel Movements 1 Result Diagram: 11/01/16 0300 10/31/162036 Objective Remarks GENERAL: Well-nourished, well-developed patient. CARDIOVASCULAR: Regular rate and rhythm without murmurs, gallops, or rubs. RESPIRATORY: Breath sounds equal bilaterally. No accessory muscle use. ABDOMEN/GI: Abdomen soft, appropriately tender, bowel sounds present. Incision: Clean, dry and intact. EXTREMITIES: No cyanosis or edema, non-tender, without signs of DVT. Assessment and Plan Problem List: (1) Ectopic without intrauterine Status: Acute Plan: s/p surgery will perform u/s as outpt to confirm heterotopic or not d/c home after void (2) Abdominal pain affecting Status: Acute Plan: s/p surgery improved (3) Anemia Status: Acute Plan: will repeat cbc now s/p 2 units PRBCs Problem Qualifiers (1) Ectopic without intrauterine : Qualified Code: O00.10 - Tubal without intrauterine Beck Ritchie MD Nov 01, 2016 06:07
[2016-11-01] MEDS: IBUPROFEN 600 MG TAB PO PRN ×2 (06:32→13:40)
[2016-11-01 07:36] LABS: HEMATOCRIT 28.7 % (35.0-46.0); HEMO FLAGS DIFF FINAL; LYMPH % 4.8 % (9.0-44.0); LYMPHOCYTE # 0.8 TH/MM3 (1.0-4.8); MEAN CORPUSCULAR HEMOGLOBIN 29.5 PG (27.0-34.0); MEAN CORPUSCULAR HGB CONC 34.3 % (32.0-36.0); NEUT % 92.2 % (16.0-70.0); PLATELET COUNT 192 TH/MM3 (150-450); RED BLOOD COUNT 3.34 MIL/MM3 (4.00-5.30); RED CELL DISTRIBUTION WIDTH 15.1 % (11.6-17.2); WHITE BLOOD COUNT 16.3 TH/MM3 (4.0-11.0)
[2016-11-01 08:00] VITALS: BP 117/57; PULSE 86; RESP 18; TEMP 98.3; O2SAT 98
[2016-11-01 12:00] VITALS: BP 113/67; PULSE 97; RESP 18; TEMP 97.4; O2SAT 98
--- NOTE | 2016-11-03 13:16 | MP ---
cc: BECK JULIO DATE OF SURGERY: 11/01/2016 PREOPERATIVE DIAGNOSIS Ectopic , possible heterotopic , abdominal pain, anemia, surgical abdomen. POSTOPERATIVE DIAGNOSIS Ectopic , possible heterotopic , abdominal pain, anemia, surgical abdomen, hemoperitoneum. SURGEON Beck Julio PROCEDURE Laparoscopic left salpingectomy and evacuation of hemoperitoneum, approximately 1700 cc. SPECIMEN Left fallopian tube. ESTIMATED BLOOD LOSS Minimal, less than 100 cc. COMPLICATIONS None. ANESTHESIA General plus local. DRAINS [place] to gravity. 300 cc of clear yellow urine was emptied at the end of the case. FLUIDS 2700 cc of LR plus 2 units of PRBC. DISPOSITION Stable to PACU. INDICATION The patient is a 26-year-old 1, para 0, who presented with acute onset of abdominal pain tonight. She was noted to be and had abdominal distention and free fluid noted on ultrasound. She was also noted to be anemic starting in the mid 8s and dropping to the mid 6s after just 3-4 short hours and she was quite symptomatic. Her ultrasound results were reviewed with the patient. Her official ultrasound results suggested that she had an IUP and no tubal was noted. There was a tubular structure noted in her left adnexa along with free fluid and blood. These findings were reviewed. The patient desired to have nothing done with her intrauterine as no cardiac activity was noted here and just to manage the abdominal findings. Thus this was undertaken. Informed consent was obtained. DETAILS OF PROCEDURE The patient was taken to the operating room. She was prepped and draped in normal sterile fashion for surgery. Her legs were placed in the universal stirrups. A sponge stick was inserted into the vagina to attempt to provide a means of uterine manipulation. The umbilical fold was injected with 0.25% Marcaine with epinephrine and under direct visualization a 5 mm laparoscope and trocar were inserted and hemoperitoneum was immediately noted. Two additional trocars were placed, one in the right lower quadrant a 10 mm trocar and one in the left lower quadrant a 5 mm trocar after being injected with local as well. Next, using the suction profiler hand hemoperitoneum was evacuated and at this point it was noted that the patient did indeed have a left ectopic that had stopped its acute bleeding. This was amputated using the Enseal device, clamping and cutting along the mesosalpinx until the tube was completely free of its attachments. Next, the EndoCatch bag was inserted and the fallopian tube on the patient's left side was removed. It should be noted that her left ovary appeared to be grossly within normal limits as did her right ovary and right fallopian tube. The uterus also appeared to be grossly within normal limits. The liver edge and gallbladder also appeared grossly normal. The patient was placed in reversed Trendelenburg and all additional clots that could be visualized were evacuated as well without difficulty. At this point the patient's surgical site in the left lower quadrant remained hemostatic. The Crossbow closure device was then inserted and 0 Vicryl suture was passed under direct visualization and the fascia was closed of the right lower quadrant port. Once this was done the abdomen was deflated and the skin was closed in a subcuticular fashion with 4-0 Monocryl suture. All instruments were removed from the patient's vagina. She was awakened and extubated and taken to the recovery room in stable condition. Beck Julio MD TEG/BT /2:45 AM /1:05 PM
== END 2016-11-01 14:12 | disposition home or self-care (01) ==
LOC: NEPD 19:27 → HOCA 11-01 00:29 → UNDOADMOB 11-01 02:17 → HOCA 11-01 02:17
PROVIDERS: ADMIT Obstetrics & Gynecology; ATTEND Obstetrics & Gynecology
DX: O00.10 Tubal pregnancy without intrauterine pregnancy (principal); K66.1 Hemoperitoneum; D64.9 Anemia, unspecified; D72.829 Elevated white blood cell count, unspecified; F12.90 Cannabis use, unspecified, uncomplicated; Z72.0 Tobacco use
CPT/HCPCS: 00840; 36430; 59151; 76700; 76817; 80048; 81001; 83605; 83690; 84155; 84702; 84703; 85025; 86850; 86900; 86901; 86920; 88305; 96361; 96374; 96375; 99291; 99292; G0378; J0131; J0690; J1885; J2250; J2270; J2370; J2405; J3010; J7030; J7120; P9016

== ENCOUNTER 2017-04-14 15:45 | Emergency (ER) | payer MEDICAID ==
[~2017-04-14] VITALS: Ht 157.5 cm; Wt 60.0 kg
[~2017-04-14 15:45] MED LIST: IBUP-232 PO; OXYC1TAB36 PO
[2017-04-14 15:46] VITALS: BP 132/79; PULSE 78; RESP 16; TEMP 98.3; O2SAT 98
--- NOTE | 2017-04-14 16:19 | PD ---
HPI Chief Complaint: Psychiatric Symptoms Time Seen by Provider: 16:17 Travel History International Travel<30 days: No Contact w/Intl Traveler<30days: No Traveled to known affect area: No History of Present Illness HPI 27 yo F c/o depressed mood due to loss of one of two twins with a prior . pt is now 30 weeks and follows with Dr Ritchie. she has no plan to harm herself or others. she reports superficial cuts to the arms previously. no drug alcohol abuse. pt denies use of any antipsychotic currently and states she is amenable with a plan for antidepressants. PFSH Past Medical History Asthma: Yes Blood Disorders: No Heart Rhythm Problems: No Cancer: No Cardiovascular Problems: No High Cholesterol: No Chemotherapy: No Chest Pain: No Congestive Heart Failure: No COPD: No Diabetes: No Diminished Hearing: No Endocrine: No Genitourinary: No Musculoskeletal: No Neurologic: No Psychiatric: No Reproductive: No Respiratory: Yes Radiation Therapy: No ?: LMP: UNKNOWN Past Surgical History Tonsillectomy: Yes Social History Alcohol Use: Yes Tobacco Use: Yes (half a pack a day) Substance Use: No Allergies-Medications (Allergen,Severity, Reaction): Coded Allergies: No Known Allergies (Unverified , 04/14/17) Reported Meds & Prescriptions Reported Meds & Active Scripts Active Ibuprofen 600 Mg Tab 600 Mg PO Q6H PRN Oxycodone-Acetaminophen 10-325 mg Tab 1 Tab PO UNSCH X1 PRN Review of Systems Except as stated in HPI: all other systems reviewed are Neg General / Constitutional: No: Fever Psychiatric: Positive: Suicidal Ideations Physical Exam Narrative GENERAL: 27 yo F, WNWD, somewhat tearful SKIN: Warm and dry. HEAD: Atraumatic. Normocephalic. EYES: Pupils equal and round. No scleral icterus. No injection or drainage. ENT: No nasal bleeding or discharge. Mucous membranes pink and moist. NECK: Trachea midline. No JVD. CARDIOVASCULAR: Regular rate and rhythm. RESPIRATORY: No accessory muscle use. Clear to auscultation. Breath sounds equal bilaterally. GASTROINTESTINAL: Abdomen soft, non-tender, nondistended. Hepatic and splenic margins not palpable. MUSCULOSKELETAL: Extremities without clubbing, cyanosis, or edema. No obvious deformities. NEUROLOGICAL: Awake and alert. No obvious cranial nerve deficits. Motor grossly within normal limits. Five out of 5 muscle strength in the arms and legs. Normal speech. PSYCHIATRIC: Appropriate mood and affect; insight and judgment normal. Data Data Last Documented VS Vital Signs Date Time Temp Pulse Resp B/P (MAP) Pulse Ox O2 Delivery O2 Flow Rate FiO2 04/14/17 15:46 98.3 78 16 132/79 (96) 98 Room Air VS reviewed MDM Medical Decision Making Medical Screen Exam Complete: Yes Emergency Medical Condition: Yes Medical Record Reviewed: Yes Differential Diagnosis Altered mental status/psychosis due to infection/environmental exposure/ metabolic abnormality, polypharmacy, alcohol abuse/intoxication, illicit or prescribed drug abuse, malingering/secondary gain, non-organic psychiatric disease Narrative Course Pt evaluated by Dr Arshad, who wrote an antidepressant script. Pt will follow up with Dr Ritchie. Diagnosis Primary Impression: Suicidal ideation Additional Impression: Qualified Codes: Z3A.30 - 30 weeks gestation of Referrals: Beck Ritchie MD 1 day Additional Instructions: Please be sure to follow up with Dr Ritchie and discuss the use of your antidepressant. Med/Other Pt SpecificInfo: Prescription(s) given Disposition: 01 DISCHARGE HOME Condition: Stable Rodrigo Guardado MD Apr 14, 2017 16:19
--- NOTE | 2017-04-14 16:40 | PD ---
History of Present Illness Chief Complaint: Psychiatric Symptoms Time Seen by Provider: 16:30 Travel History International Travel<30 Days: No Contact w/Intl Traveler<30days: No Known affected area: No Legal Status Legal Status: Voluntary History of Present Illness: 27-year-old female presents with symptoms of depression. No suicidal or homicidal ideation, plan or intent and patient contracts for safety. No psychosis and cognition intact. Patient competent. Wants to start antidepressant medicine. Given prescription for Lexapro 5 mg by mouth daily 7 days and then 10 mg by mouth daily. 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 Verbally contracts for safety and competent to do so. PFSH Past Medical History Asthma: Yes Blood Disorders: No Heart Rhythm Problems: No Cancer: No Cardiovascular Problems: No High Cholesterol: No Chemotherapy: No Chest Pain: No Congestive Heart Failure: No COPD: No Diabetes: No Diminished Hearing: No Endocrine: No Genitourinary: No Musculoskeletal: No Neurologic: No Psychiatric: No Reproductive: No Respiratory: Yes Radiation Therapy: No ?: LMP: UNKNOWN Past Surgical History Tonsillectomy: Yes Psychiatric History Psychiatric History Hx Psychiatric Treatment: Denied History of Inpatient Treatment: No Guns or firearms in home: No Social History Hx Alcohol Use: Yes Hx Tobacco Use: Yes (half a pack a day) Hx Substance Use: No Hx of Substance Use Treatment: No Allergies-Medications (Allergen,Severity, Reaction): Coded Allergies: No Known Allergies (Unverified , 04/14/17) Reported Meds & Prescriptions Reported Meds & Active Scripts Active Ibuprofen 600 Mg Tab 600 Mg PO Q6H PRN Oxycodone-Acetaminophen 10-325 mg Tab 1 Tab PO UNSCH X1 PRN Review of Systems Except as stated in HPI: all other systems reviewed are Neg Exam Alert: Yes [place]: Person, Place, Date, Situation Mood: Calm, Depressed Affect: Appropriate Speech: Clear, Logical Eye Contact: Normal Memory Intact: Immediate, Recent, Remote Delusions: No Insight/Judgement Adequate MDM Medical Decision Making Medical Record Reviewed: Yes Assessment/Plan Patient interviewed, case discussed with Dr. Pugh and medical record reviewed. Patient given prescription for Lexapro. Asked to come back if she feels worse. Results Vital Signs Date Time Temp Pulse Resp B/P (MAP) Pulse Ox O2 Delivery O2 Flow Rate FiO2 04/14/17 15:46 98.3 78 16 132/79 (96) 98 Room Air Diagnosis Primary Impression: Adjustment disorder with depressed mood Logan Arshad MD Apr 14, 2017 16:40
== END 2017-04-14 17:08 | disposition home or self-care (01) ==
LOC: NEPB 15:45
DX: O99.343 Other mental disorders complicating pregnancy, third trimester (principal); F43.21 Adjustment disorder with depressed mood; Z3A.30 30 weeks gestation of pregnancy
CPT/HCPCS: 99284

== ENCOUNTER 2017-04-18 23:42 | Emergency (ER) | payer MEDICAID ==
[2017-04-19] MEDS ORDERED: ACETAMINOPHEN 325 MG TAB PO ONE (00:45)
--- NOTE | 2017-04-19 00:57 | PD ---
HPI Chief Complaint Fever and body aches Date Seen: Apr 19, 2017 Time Seen: 00:52 Travel History International Travel<30 Days: No Contact w/Intl Traveler<30Days: No Known Affected Area: No History of Present Illness HPI 27-year-old 1 para 0 at 32 weeks gestation who reports having felt poorly since . She states that she was having fever and felt like her lower back was swollen and sore. She denies any dysuria hematuria or frequency. No diarrhea. No nausea and vomiting. She has not had much of an appetite. No abdominal pain or contractions. No vaginal discharge. History Past Medical History Medical History: Denies Significant Hx Obstetric History Obstetric History Heterotopic with this gestation resulting in left salpingectomy Past Surgical History Narrative Surgical Ectopic , tonsillectomy, cyst removal from her wrist and her need Family History Family History: Negative Social History Alcohol Use: No Tobacco Use: No Substance Abuse: No Allergies-Medications (Allergen,Severity, Reaction): Coded Allergies: No Known Allergies (Unverified , 04/14/17) Home Meds Active Scripts Ibuprofen (Ibuprofen) 600 Mg Tab, 600 MG PO Q6H Y for Pain/Inflammation, #40 TAB 0 Refills Prov:Beck Ritchie MD 11/01/16 Oxycodone-Acetaminophen (Oxycodone-Acetaminophen) 10-325 mg Tab, 1 TAB PO UNSCH X1 Y for PAIN SCALE 6 TO 10, #30 TAB Prov:Beck Ritchie MD 11/01/16 Review of Systems Except as stated in HPI: all other systems reviewed are Neg Physical Exam Narrative GENERAL: Well-nourished, well-developed patient. SKIN: Warm and dry. HEAD: Normocephalic and atraumatic. EYES: No scleral icterus. No injection or drainage. ENT: No nasal drainage noted. Mucous membranes pink. Airway patent. NECK: Supple, trachea midline. No JVD. CARDIOVASCULAR: Regular rate and rhythm without murmurs, gallops, or rubs. RESPIRATORY: Breath sounds equal bilaterally. No accessory muscle use. ABDOMEN/GI: Abdomen soft, non-tender, bowel sounds present, no rebound, no guarding , no CVA tenderness Gravid to [-] weeks size Fundal Height: [-] GENITOURINARY: External Genitalia: intact and normal in appearance BUS glands: [-] Cervix: [-] Dilatation: [-] Effacement: [-] Station: [-] Presentation: [-] Membranes: [intact or ruptured] Uterine Contractions: [-] FHT's: Category: [-] Baseline: [160s-] Reactive: [Yes-] Variability: [-] Decels: [-] EXTREMITIES: No cyanosis or edema. BACK: Nontender without obvious deformity. No CVA tenderness. NEUROLOGICAL: Awake and alert. Motor and sensory grossly within normal limits. Five out of 5 muscle strength in all muscle groups. Normal speech. Data Data Vital Signs Reviewed: Yes Orders Orders Acetaminophen (Tylenol) (04/19/17 00:45) MDM Medical Record Reviewed: Yes Narrative Course / MDM Assessment: 33 week intrauterine with likely viral illness Plan: Discussed labor precautions. She will return home with oral hydration recommendations and by mouth Tylenol. She has a follow-up appointment this week with Dr. Ritchie. Diagnosis Diagnosis: Primary Impression: 33 weeks gestation of Additional Impression: Viral syndrome Disposition: DISCHARGE HOME Condition: Good Jarret Brunson MD Apr 19, 2017 00:57
== END 2017-04-19 00:59 | disposition home or self-care (01) ==
LOC: HOBED 23:42
DX: O98.513 Other viral diseases complicating pregnancy, third trimester (principal); B34.9 Viral infection, unspecified; Z3A.33 33 weeks gestation of pregnancy
CPT/HCPCS: 99283

== ENCOUNTER 2017-07-14 00:25 | Emergency (ER) | payer MEDICAID ==
[~2017-07-14] VITALS: Ht 157.5 cm; Wt 57.0 kg
[2017-07-14 00:27] VITALS: BP 168/104; PULSE 67; RESP 16; TEMP 98; O2SAT 97
[2017-07-14] MEDS ORDERED: CEPH-460 PO (01:02)
[2017-07-14] MEDS ORDERED: NORC5TAB PO (01:02)
--- NOTE | 2017-07-14 01:07 | PD ---
HPI Chief Complaint: Skin Problem Time Seen by Provider: 00:54 Travel History International Travel<30 days: No Contact w/Intl Traveler<30days: No Traveled to known affect area: No History of Present Illness HPI 27-year-old female who is currently breast-feeding presents emergency Department with complaints of left breast pain. She states that her left breast has become increasingly painful, and swollen. She also makes note that she had her nipples pierced but had taken her piercing out after she had become . She had no some increasing swelling around her nipple. No fever chills. No nausea vomiting. Pain is moderate. No purulent discharge. No alleviating factors. Exacerbated by palpation. PFSH Past Medical History Asthma: Yes Blood Disorders: No Heart Rhythm Problems: No Cancer: No Cardiovascular Problems: No High Cholesterol: No Chemotherapy: No Chest Pain: No Congestive Heart Failure: No COPD: No Diabetes: No Diminished Hearing: No Endocrine: No Gastrointestinal Disorders: No Genitourinary: No Hypertension: No Musculoskeletal: No Neurologic: No Psychiatric: No Reproductive: No Respiratory: Yes Radiation Therapy: No Tetanus Vaccination: < 5 Years ?: Not Past Surgical History Tonsillectomy: Yes Other Surgery: Yes (LEFT SALPINGECTOMY, CYST REMOVAL RIGHT HAND AND RIGHT KNEE) Social History Alcohol Use: No Tobacco Use: No Substance Use: No Allergies-Medications (Allergen,Severity, Reaction): Coded Allergies: No Known Allergies (Unverified Adverse Reaction, Unknown, 07/14/17) Reported Meds & Prescriptions Reported Meds & Active Scripts Active Jerome (Hydrocodone-Acetaminophen) 5 Mg-325 Mg Tab 1 Tab PO Q6H PRN Keflex (Cephalexin) 500 Mg Cap 500 Mg PO Q6H 10 Days Review of Systems General / Constitutional: No: Fever, Chills Eyes: No: Visual changes HENT: No: Headaches Cardiovascular: No: Chest Pain or Discomfort Respiratory: No: Shortness of Breath Gastrointestinal: No: Abdominal Pain Genitourinary: No: Dysuria Musculoskeletal: No: Pain Skin: Positive Breast Lumps, Positive Breast Tenderness, Positive Breast Swelling, No Rash Neurologic: No: Weakness Psychiatric: No: Depression Endocrine: No: Polydipsia Hematologic/Lymphatic: No: Easy Bruising Physical Exam Narrative GENERAL: This is a well-nourished, well-developed patient, in no apparent distress. The patient's examined with the tech present. SKIN: No rashes, ecchymoses or lesions. Warm and dry. HEAD: Atraumatic. Normocephalic. EYES: PERRL, EOMI, no discharge or injection. No scleral icterus. EARS: Clear NOSE: Nasal turbinates appear normal. THROAT: Mucosa pink and moist. Airway patent. NECK: Trachea midline. supple, moves head freely. LUNGS: Clear to auscultation. CV: Regular in rhythm. ABDOMEN: Soft nontender. EXT: No clubbing cyanosis or edema. Breasts: Patient's left breast shows swelling of the left areola. She has tenderness at the 3:00-6:00 hour of the breast. It is somewhat firm. There is no fluctuance or pointing. No induration. No erythema. Data Data Last Documented VS Vital Signs Date Time Temp Pulse Resp B/P (MAP) Pulse Ox O2 Delivery O2 Flow Rate FiO2 07/14/17 00:27 98.0 67 16 168/104 (125) 97 Room Air Orders Orders Cephalexin (Keflex) (07/14/17 01:15) Acetamin-Hydrocod 325-5 Mg (Jerome 5-325 (07/14/17 01:15) MDM Medical Decision Making Medical Screen Exam Complete: Yes Emergency Medical Condition: Yes Medical Record Reviewed: Yes Differential Diagnosis MDM: High Differential diagnoses: Abscess, folliculitis, cellulitis, lymphangitis, abrasion, contact dermatitis, mastitis Narrative Course Patient is given Keflex 1 g by mouth and Lortab 5 mg by mouth. This is left mastitis Patient is encouraged to continue to breast-feed with her left breast. Is encouraged to follow-up with a primary care doctor in the next 48 hours or return to the ER if symptoms worsen. Diagnosis Primary Impression: Acute mastitis of left breast Patient Instructions: Narcotic given in the ED, General Instructions Additional Instructions: Rest. Elevation. keep clean and dry. Continue to breast-feed with your left breast Keflex and Lortab for severe pain Three Advil every 6 hours. Follow-up with a primary care doctor or your OB doctor in the next 48 hours. Return to the ER for any problems. Med/Other Pt SpecificInfo: Prescription(s) given, Wound Care Scripts Hydrocodone-Acetaminophen (Jerome) 5 Mg-325 Mg Tab 1 TAB PO Q6H Y for PAIN, #12 TAB 0 Refills Prov: Cy Hanna MD 07/14/17 Cephalexin (Keflex) 500 Mg Cap 500 MG PO Q6H for Infection for 10 Days, #40 CAP 0 Refills Prov: Cy Hanna MD 07/14/17 Disposition: 01 DISCHARGE HOME Condition: Stable Saud Monique Jul 14, 2017 01:07
[2017-07-14] MEDS ORDERED: ACETAMINOPHEN/HYDROcodone 325 MG/5 MG TAB PO ONE (01:15)
[2017-07-14] MEDS ORDERED: CEPHALEXIN MONOHYDRATE 500 MG CAP PO ONE (01:15)
== END 2017-07-14 01:26 | disposition home or self-care (01) ==
LOC: NEPD 00:25
DX: N61.0 Mastitis without abscess (principal)
CPT/HCPCS: 99284